=== PATIENT | male | born 1945 | race Caucasian/White ===

== ENCOUNTER 2019-11-21 06:49 | Day surgery (SDC) | payer MEDICARE, OTHER ==
[~2019-11-21] VITALS: Ht 175.3 cm; Wt 98.7 kg
[2019-11-21 07:05] VITALS: BP 148/81
[2019-11-21] MEDS ORDERED: OMEP40CA13 PO (07:22)
[2019-11-21] MEDS ORDERED: COU5T PO (07:22)
[2019-11-21] MEDS ORDERED: BENA40TA8 PO (07:22)
[2019-11-21] MEDS ORDERED: SIMV-42 PO (07:22)
[2019-11-21] MEDS ORDERED: COLC0.6T69 PO (07:22)
[2019-11-21] MEDS ORDERED: DOXY100T2 PO (07:22)
[2019-11-21] MEDS ORDERED: TEST200V6 IM (07:22)
[2019-11-21] MEDS ORDERED: normal saline 1000ml 1,000 ML IV PRN (07:25)
[2019-11-21 08:40] VITALS: BP 143/83
== END 2019-11-21 08:53 | disposition home or self-care (01) ==
LOC: SSTAY O 06:49
PROVIDERS: ATTEND Radiology Diagnostic Radiology
DX: M71.21 Synovial cyst of popliteal space [Baker], right knee (principal); M25.561 Pain in right knee; Z88.8 Allergy status to other drugs, medicaments and biological substances; Z88.5 Allergy status to narcotic agent; Z79.899 Other long term (current) drug therapy; Z79.01 Long term (current) use of anticoagulants; R22.41 Localized swelling, mass and lump, right lower limb
CPT/HCPCS: 10160; 36415; 76942; 85610; J7030